=== PATIENT | male | born 1970 | race American Indian/Alaskan Native ===

== ENCOUNTER 2021-02-01 15:03 | Emergency (ER) | payer SELFPAY ==
[2021-02-01] MEDS ORDERED: ACETAMINOPHEN 500 MG TAB PO ONE ×2 (17:15→21:46)
[2021-02-01] MEDS ORDERED: SODIUM CHLORIDE 0.9% 1000 ML 1,000 ML IV ONE ×3 (17:16→21:46)
[2021-02-01] MEDS ORDERED: TAMSULOSIN 0.4 MG CAP PO ONE ×2 (17:17→19:52)
[2021-02-01] MEDS ORDERED: ONDANSETRON 4 MG ODT TAB PO ONE (17:17)
[2021-02-01] MEDS ORDERED: levoFLOXacin 750 MG TAB PO ONE ×2 (17:17→19:52)
[2021-02-01 17:41] LABS: Basophils % (Auto) 0.2 % (0.0-1.8); Eosinophils % (Auto) 0.1 % (0.0-4.3); Hematocrit 43.4 % (35.5-45.6); Lymphocytes % (Auto) 6.6 % (13.4-35.0); Mean Corpuscular HGB Conc 35 % (32-34); Mean Corpuscular Volume 89 fl (84-94); Monocytes # (Auto) 1.1 K/mm3 (0.0-0.8); Monocytes % (Auto) 7.6 % (0.0-7.3); Platelet Count 200 K/mm3 (140-440); Red Blood Count 4.89 M/mm3 (3.65-5.03); Red Cell Distribution Width 13.2 % (13.2-15.2)
[2021-02-01 18:07] LABS: Alanine Aminotransferase 25 units/L (7-56); Albumin 4.2 g/dL (3.9-5); BUN/Creatinine Ratio 8; Blood Urea Nitrogen 10 mg/dL (9-20); Calcium 8.9 mg/dL (8.4-10.2); Hemolysis Index 26
[2021-02-01 18:31] LABS: Bilirubin,Urine NEG (Negative); Blood,Urine MOD (Negative); Color,Urine Amber (Yellow); Mucus,Urine 1+ /HPF
--- NOTE | 2021-02-01 19:06 | Emergency Department Report ---
ED Abdominal Pain HPI - General Chief Complaint: Abdominal Pain Stated Complaint: ABD PAIN Source: patient Mode of arrival: Ambulatory Limitations: Language Barrier - History of Present Illness Initial Comments: Patient is a 50-year-old -Vietnamese male with no past medical history presents to the ED with complaint of acute onset persistent diffuse body aches and pains, chills, dysuria, urinary frequency and urgency, suprapubic pressure and urinary retention for the last 3 days. Patient states that whenever he tries to void urine the pain gets worse and he only dribbles urine despite applying pressure. Patient also states that he has had intermittent constipation for the last 1 week and each time he tries to have a bowel movement he only manages to expel few droplets and even then it is hard to expel stool. Patient states the last time he had a small bowel movement was 24 hours ago. Patient denies nausea and vomiting, diarrhea, dizziness, syncope, low back pain, hematuria, testicular pain, chest pain or shortness of breath, cough, nasal and sinus congestion or sore throat. In the ED, language line was used to aid in communication with the patient who was not fluent in Frisian. MD Complaint: abdominal pain (suprapubic pain), other (dysuria, urinary urgency and frequency; fever, chills) -: Sudden, days(s) (3) Location: suprapubic Radiation: none Migration to: no migration Severity: severe Severity scale (0 -10): 7 Quality: cramping, aching, other (pressure) Worsens With: other (urination) Associated Symptoms: denies other symptoms, chills, anorexia. denies: nausea, vomiting, diarrhea, fever, constipation, hematemesis, hematochezia, melena, hematuria, syncope, other - Related Data Previous Rx's Medication Instructions Recorded Last Taken Type Docusate Sodium [Dok] 100 mg PO Q12H #60 tablet 02/01/21 Unknown Rx Ibuprofen [Motrin] 800 mg PO Q8HR PRN #30 tablet 02/01/21 Unknown Rx Ondansetron [Zofran Odt] 4 mg PO Q6HR PRN #20 tab.rapdis 02/01/21 Unknown Rx Sulfamethoxazole/Trimethoprim 1 each PO Q12H #20 tablet 02/01/21 Unknown Rx [Bactrim DS TAB] Tamsulosin [Flomax] 0.4 mg PO QDAY #30 cap 02/01/21 Unknown Rx Allergies Allergy/AdvReac Type Severity Reaction Status Date / Time No Known Allergies Allergy Verified 02/01/21 17:09 ED Review of Systems ROS: Stated complaint: ABD PAIN Other details as noted in HPI Constitutional: chills, fever, malaise, weakness Eyes: denies: eye pain, eye discharge, vision change ENT: denies: ear pain, throat pain Respiratory: denies: cough, shortness of breath, SOB with exertion, wheezing Cardiovascular: denies: chest pain, palpitations Endocrine: no symptoms reported Gastrointestinal: abdominal pain (suprapubic). denies: nausea, vomiting, diarrhea Genitourinary: urgency, dysuria, frequency. denies: testicular pain, testicular mass Musculoskeletal: arthralgia, myalgia. denies: back pain, joint swelling Skin: denies: rash, lesions Neurological: denies: headache, weakness, paresthesias Psychiatric: denies: anxiety, depression Hematological/Lymphatic: denies: easy bleeding, easy bruising ED Past Medical Hx - Social History Smoking Status: Never Smoker Substance Use Type: None - Medications Home Medications: Home Medications Medication Instructions Recorded Confirmed Last Taken Type Docusate Sodium [Dok] 100 mg PO Q12H #60 tablet 02/01/21 Unknown Rx Ibuprofen [Motrin] 800 mg PO Q8HR PRN #30 tablet 02/01/21 Unknown Rx Ondansetron [Zofran Odt] 4 mg PO Q6HR PRN #20 tab.rapdis 02/01/21 Unknown Rx Sulfamethoxazole/Trimethoprim 1 each PO Q12H #20 tablet 02/01/21 Unknown Rx [Bactrim DS TAB] Tamsulosin [Flomax] 0.4 mg PO QDAY #30 cap 02/01/21 Unknown Rx ED Physical Exam - General Limitations: Language Barrier General appearance: alert, in no apparent distress - Head Head exam: Present: atraumatic, normocephalic, normal inspection - Eye Eye exam: Present: normal appearance, PERRL, EOMI Pupils: Present: normal accommodation - ENT ENT exam: Present: normal exam, normal orophraynx, mucous membranes moist, TM's normal bilaterally, normal external ear exam - Neck Neck exam: Present: normal inspection, full ROM. Absent: tenderness - Respiratory Respiratory exam: Present: normal lung sounds bilaterally. Absent: respiratory distress, wheezes, rales, rhonchi, chest wall tenderness, accessory muscle use, decreased breath sounds, prolonged expiratory - Cardiovascular Cardiovascular Exam: Present: normal rhythm, tachycardia, normal heart sounds. Absent: systolic murmur, diastolic murmur, rubs, gallop - GI/Abdominal GI/Abdominal exam: Present: soft, tenderness (Palpable suprapubic tenderness), normal bowel sounds. Absent: guarding, rebound, hyperactive bowel sounds, hypoactive bowel sounds, organomegaly, bruit - Extremities Exam Extremities exam: Present: normal inspection, full ROM, normal capillary refill - Back Exam Back exam: Present: normal inspection, full ROM. Absent: tenderness, CVA tenderness (L), muscle spasm, paraspinal tenderness, vertebral tenderness - Neurological Exam Neurological exam: Present: alert, oriented X3, CN II-XII intact, normal gait, reflexes normal - Psychiatric Psychiatric exam: Present: normal affect, normal mood - Skin Skin exam: Present: warm, dry, intact, normal color. Absent: rash ED Course Vital Signs 02/01/21 02/01/21 17:07 21:30 Temperature 102.8 F H 102.1 F H Pulse Rate 112 H 94 H Respiratory 22 17 Rate Blood Pressure 122/56 Blood Pressure 112/61 [Right] O2 Sat by Pulse 98 97 Oximetry ED Medical Decision Making - Lab Data Result diagrams: 02/01/21 17:18 02/01/21 17:18 - Radiology Data Radiology results: report reviewed, image reviewed [facility] [address] [place] [address] Cat Scan Report Signed Patient: NICOLAS SWAIN MR#: [id number] : 1970 Acct:[id number] Age/Sex: 50 / M ADM Date: 02/01/21 Loc: ED Attending Dr: Ordering Physician: LISA MCCARTY Date of Service: 02/01/21 Procedure(s): CT abdomen pelvis w con Accession Number(s): [id number] cc: LISA MCCARTY CT abdomen pelvis w con INDICATION: Pelvic pain. COMPARISON: None TECHNIQUE: Abdominal and pelvic CT exam performed. All CT scans at this location are performed using CT dose reduction for ALARA by means of automated exposure control. FINDINGS: CT ABDOMEN and PELVIS: Lung Bases: No significant abnormality. Liver: No significant abnormality. Biliary: No significant abnormality. Spleen: No significant abnormality. Pancreas: No significant abnormality. Adrenals: No significant abnormality. Kidneys: 6 mm left lower pole nonobstructive stone. No hydronephrosis. No suspicious lesion. Subcentimeter right interpolar hypoattenuating lesion is incompletely characterized due to small size but most likely represents a cyst. Lymphatics: No lymphadenopathy. Vasculature: No significant abnormality. Bowel: No significant abnormality. Normal appendix. Pelvis: Mild bladder wall thickening with surrounding stranding. Mild prostatic enlargement with hypoattenuation seen within the right superior aspect of prostate. Osseous Structures: No aggressive osseous lesion. Additional Findings: None IMPRESSION: 1. There is mild bladder wall thickening with surrounding stranding which could indicate cystitis. Correlate with urinalysis. Possibly edematous prostate of hypoattenuation seen within the right superior portion, can correlate for prostatitis. Signer Name: Miguelito Mancera MD Signed: 02/01/2021 7:41 PM Workstation Name: [id number] Transcribed By: ISAIAS Dictated By: Miguelito Mancera MD Electronically Authenticated By: Miguelito Mancera MD Signed Date/Time: 02/01/211940 DD/ 36 TD/TT: - Medical Decision Making This is a 50-year-old -Vietnamese male with no past medical history prese nts to the ED with complaint of acute onset persistent diffuse body aches and pains, chills, dysuria, urinary frequency and urgency, suprapubic pressure and urinary retention for the last 3 days. Patient states that whenever he tries to void urine the pain gets worse and he only dribbles urine despite applying pressure. Patient also states that he has had intermittent constipation for the last 1 week and each time he tries to have a bowel movement he only manages to expel few droplets and even then it is hard to expel stool. Patient states the last time he had a small bowel movement was 24 hours ago. In the ED, patient is alert and oriented x3 and is not in distress but tachycardic and febrile in triage. Patient was treated for fever in the ED and also given 2 L of normal saline IV bolus x1. Patient was also treated with antiemetics and antibiotics in the ED. Lab test results were reviewed and showed acute leukocytosis of 14,600 and mild hyponatremia 134 mmol/L. Urinalysis showed significant urinary tract infection. Abdomen pelvis CT scan with contrast showed a mild bladder wal l thickening with surrounding stranding which could indicate cystitis. Correlate with urinalysis. Possibly edematous prostate of hypoattenuation seen within the right superior portion, can correlate for prostatitis. On reevaluation, patient felt better, voided urine in the ED after the 2 L of normal saline IV fluids with no difficulties. Fever and tachycardia also resolved in the ED. Patient was therefore discharged home on antibiotics, Flomax as well as antiemetics and pain medication and was advised to follow-up with his primary care physician in 5 to 7 days for reevaluation or return to the ED immediately if symptoms get worse. - Differential Diagnosis UTI; Kidney stones; BPH; Urinary retention; Constipation Critical care attestation.: If time is entered above; I have spent that time in minutes in the direct care of this critically ill patient, excluding procedure time. ED Disposition Clinical Impression: Acute suprapubic pain, Fever and chills, Acute urinary tract infection Disposition: DC-01 TO HOME OR SELFCARE Is pt being admited?: No Does the pt Need Aspirin: No Condition: Stable Instructions: Urinary Tract Infection, Adult, [id number], Abdominal Pain, Adult, [id number] Additional Instructions: Melany venturaiijochicho nulla lon ayaa patricia loo eegay oo dhammaantood lama dhaqmi batool. Sawirka miskaha ee miskaha ee 'CT scan' oo ka vipul horjeedka ah ayaa muujiyay derbi kaadiheysta oo khafiif ah oo isku dhejinaya xayndaabkeeda taas oo muujin karta cystitis, sida lagu xaqiijiyay baadhitaanka kaadi mareenka oo ku fiicnaaday infekshinka marinka kaadi mareenka ama cystitis. Waxay sidoo kale muujisay qanjirka 'prostate prostate' ee hypoattenuation ee lagu arko qaybta saxda ah ee saxda ah, wuxuu isku xiri karaa prostatitis. Sidaa darteed dawooyinka ku qaado cuntada, cab cabitaanno cielo badan gregory flavia dhaqtakatelynnaga darrylyecrystalka aasaasiga ah 5 ilaa 7 maalmood si patricia loogu qiimeeyo. Ku noqo ED dionisio natalia calles ay ivon welshi johnny. Prescriptions: Sulfamethoxazole/Trimethoprim [Bactrim DS TAB] 1 each PO Q12H #20 tablet Docusate Sodium [Dok] 100 mg PO Q12H #60 tablet Tamsulosin [Flomax] 0.4 mg PO QDAY #30 cap Ibuprofen [Motrin] 800 mg PO Q8HR PRN #30 tablet PRN Reason: Pain , Severe (7-10) Ondansetron [Zofran Odt] 4 mg PO Q6HR PRN #20 tab.rapdis PRN Reason: Nausea Referrals: [facility] [Provider Group] - 3-5 Days Time of Disposition: 23:14 Print Language: SPANISH
--- NOTE | 2021-02-01 19:45 | Cat Scan Report ---
CT abdomen pelvis w con INDICATION: Pelvic pain. COMPARISON: None TECHNIQUE: Abdominal and pelvic CT exam performed. All CT scans at this location are performed using CT dose reduction for ALARA by means of automated exposure control. FINDINGS: CT ABDOMEN and PELVIS: Lung Bases: No significant abnormality. Liver: No significant abnormality. Biliary: No significant abnormality. Spleen: No significant abnormality. Pancreas: No significant abnormality. Adrenals: No significant abnormality. Kidneys: 6 mm left lower pole nonobstructive stone. No hydronephrosis. No suspicious lesion. Subcenti meter right interpolar hypoattenuating lesion is incompletely characterized due to small size but mos t likely represents a cyst. Lymphatics: No lymphadenopathy. Vasculature: No significant abnormality. Bowel: No significant abnormality. Normal appendix. Pelvis: Mild bladder wall thickening with surrounding stranding. Mild prostatic enlargement with hypo attenuation seen within the right superior aspect of prostate. Osseous Structures: No aggressive osseous lesion. Additional Findings: None IMPRESSION: 1. There is mild bladder wall thickening with surrounding stranding which could indicate cystitis. Co rrelate with urinalysis. Possibly edematous prostate of hypoattenuation seen within the right superio r portion, can correlate for prostatitis. Signer Name: Miguelito Mancera MD Signed: 02/01/2021 7:41 PM Workstation Name: [id number]
[2021-02-01] MEDS ORDERED: ONDANSETRON 4 MG/2 ML INJ IV ONE (19:52)
[2021-02-01] MEDS ORDERED: IBUPROFEN 600 MG TAB PO ONE (21:33)
[2021-02-01 21:41] VITALS: BP 112/61
== END 2021-02-01 23:28 | disposition home or self-care (01) ==
LOC: ED 15:03
DX: N39.0 Urinary tract infection, site not specified (principal); R10.30 Lower abdominal pain, unspecified; R50.9 Fever, unspecified; M79.18 Myalgia, other site; Z79.899 Other long term (current) drug therapy
CPT/HCPCS: 36415; 74177; 80053; 81001; 82140; 85025; 87040; 87086; 96361; 96374; 99284; J2405; J7030; Q9967; 80320; 87076; 87186; G0480